=== PATIENT | female | born 1990 | race Hispanic/Latino ===

== ENCOUNTER 2021-04-07 19:04 | Emergency (ER) | payer BC, SELFPAY ==
[2021-04-07 19:14] VITALS: BP 113/73; PULSE 79; RESP 16; TEMP 36.2; O2SAT 100
--- NOTE | 2021-04-07 19:58 | ED.SKABFB ---
HPI - Skin/Abscess/Foreign Bdy General Chief complaint: Skin/Abscess/Foreign Body Stated complaint: rash Time Seen by Provider: 04/07/21 19:16 Source: patient and RN notes reviewed Mode of arrival: ambulatory Limitations: no limitations History of Present Illness HPI narrative: Patient presents today complaining of pruritic and slightly painful rash that started yesterday on her back and has spread generally over her body surface today with the exception of her lower legs. Denies swelling of her lips or tongue, difficulty swallowing, or shortness of breath. Denies any known changes to her medications, household products, foods, plant or animal exposures. She has been taking Benadryl without relief. complaint: rash Related Data Home Medications Medication Instructions Recorded Confirmed phentermine 8 mg PO TID 04/07/21 04/07/21 Allergies Allergy/AdvReac Type Severity Reaction Status Date / Time gadobenic acid Allergy Anaphylactic Verified 04/07/21 19:53 [From contrast - MRI] Shock iohexol Allergy Anaphylactic Verified 04/07/21 19:53 [From contrast - CT, X-RAY] Shock shrimp Allergy Anaphylactic Verified 04/07/21 19:53 Shock silver Allergy Rash Verified 04/07/21 19:53 [From Tegaderm AG Mesh] Review of Systems Review of Systems: CONSTITUTIONAL: Denies body aches, fever, chills, or sweats. EYES: Denies visual changes, redness, or discharge. ENT: Denies rhinorrhea, congestion, sore throat, or otalgia. CARDIOVASCULAR: Denies chest pain, palpitations, or edema. RESPIRATORY: Denies cough or dyspnea. GASTROINTESTINAL: Denies abdominal pain, nausea, vomiting, or diarrhea. GENITOURINARY: Denies dysuria or hematuria. SKIN: + Rash MUSCULOSKELETAL: Denies back pain, joint pain, or myalgia. NEUROLOGIC: Denies headache, numbness, tingling, or weakness. PSYCH: Denies depression or anxiety. PMFSH Comments At time of signature, I have reviewed and agree with nursing past medical, surgical, social and family history unless otherwise noted. Please see nursing chart for further information. There is no relevant family history pertinent to the presenting complaint Exam Narrative: GENERAL: Well-appearing, well-nourished, and in no acute distress. HEAD: Normocephalic, atraumatic. EYES: EOMI. No redness or drainage. Conjunctivae normal. ENT: Mucous membranes pink and moist. Throat normal. Uvula midline. NECK: Normal AROM. CHEST: No respiratory distress. EXTREMITIES: Normal range of motion. No edema. SKIN: Warm, dry. Capillary refill normal. Normal skin turgor. Erythematous pinpoint papular rash over the body surface, and coalesced into large areas to the back and chest. NEURO: No focal deficits. Alert and oriented x3. Gait steady. PSYCH: Normal affect. No signs of depression or anxiety. Course Course Level of Care: Express Care Visit Vital Signs Vital signs: Vital Signs Temperature 97.1 F L 04/07/21 19:14 Pulse Rate 79 04/07/21 19:14 Respiratory Rate 16 04/07/21 19:14 Blood Pressure 113/73 04/07/21 19:14 Pulse Oximetry 100 04/07/21 19:14 Temperature 97.1 F L 04/07/21 19:14 Pulse Rate 79 04/07/21 19:14 Respiratory Rate 16 04/07/21 19:14 Blood Pressure 113/73 04/07/21 19:14 Pulse Oximetry 100 04/07/21 19:14 Reviewed MDM - Skin/Abscess/Foreign Bdy Differential Diagnosis Differential diagnosis: Likely viral exanthem, urticaria, cellulitis, eczema and contact dermatitis Critical Care Time Critical Care Time Critical Care Time: No Discharge Plan Discharge Clinical Impression: Dermatitis Patient Disposition: Home, Self-Care Condition: Stable Instructions: Dermatitis (ED) Additional Instructions: Please take the prednisone as prescribed until gone. Continue Benadryl for itching. As discussed, please go the ER immediately if you develop any swelling in her lips or tongue, difficulty swallowing, or shortness of breath. Follow-up with your doc
== END 2021-04-07 20:05 | disposition home or self-care (01) ==
PROVIDERS: Emergency Provider Nurse Practitioner; PCP Family Medicine
DX: L30.9 Dermatitis, unspecified (principal); Z85.43 Personal history of malignant neoplasm of ovary; Z92.21 Personal history of antineoplastic chemotherapy; Z90.721 Acquired absence of ovaries, unilateral
CPT/HCPCS: 99203; G0463